=== PATIENT | female | born 1990 | race American Indian/Alaskan Native ===

== ENCOUNTER → 2020-05-19 13:55 | Outpatient (BNVA) | payer OTHER, SELFPAY | PROVIDERS: Visit Provider Nurse Practitioner Family | DX: Z20.828 Contact with and (suspected) exposure to other viral communicable diseases (principal) | CPT/HCPCS: 87635 ==

== ENCOUNTER → 2020-08-09 15:50 | Outpatient (BNVA) | payer OTHER, SELFPAY | PROVIDERS: Visit Provider Nurse Practitioner Women's Health | DX: Z01.411 Encounter for gynecological examination (general) (routine) with abnormal findings | CPT/HCPCS: 88175 ==

== ENCOUNTER 2020-08-13 08:20 | Outpatient (CLI) | payer OTHER, SELFPAY ==
--- NOTE | 2020-08-13 08:45 | US_ITS ---
WS: [id number] ULTRASOUND LEFT BREAST HISTORY: N63.20 - Unspecified lump in the left breast, unspecified quadrant COMPARISON: None available. TECHNIQUE: 2-D and Doppler. Dense fibroglandular tissue in the LEFT breast upper outer quadrant in the area of the reported palpa ble nodule. There is no cyst or solid mass or distortion. US/US breast LT limited* [id number] IMPRESSION: BI-RADS: 1-Negative FOLLOW-UP: Age 42
== END 2020-08-13 08:21 | disposition home or self-care (01) ==
LOC: RAD 08:24
PROVIDERS: PCP Nurse Practitioner Family; Visit Provider Nurse Practitioner Women's Health
DX: N63.21 Unspecified lump in the left breast, upper outer quadrant (principal)
CPT/HCPCS: 76642; 76830

== ENCOUNTER → 2020-09-11 15:35 | Outpatient (BNVA) | payer OTHER, SELFPAY | PROVIDERS: PCP Nurse Practitioner Family; Visit Provider Obstetrics & Gynecology | DX: Z20.822 Contact with and (suspected) exposure to COVID-19 (principal) | CPT/HCPCS: 87635 ==

== ENCOUNTER 2020-09-17 09:02 | Day surgery (SDC) | payer OTHER, SELFPAY ==
[2020-09-13 10:07] VITALS: BMI 23.3
[2020-09-17] VITALS (7 sets, daily range): BP systolic 83–122; BP diastolic 39–78; PULSE 73–92; RESP 16–18; TEMP 36.4; O2SAT 98–100
[2020-09-17] MEDS: sodium chloride 0.9% 1,000 ML 30 ML IV (09:30)
[2020-09-17] MEDS: gabapentin 300 mg Capsule PO (09:34)
[2020-09-17] MEDS: ketorolac 30 mg/mL INJ IVP (09:36)
[2020-09-17 09:46] LABS: OR HCG Qualitative Urine Negative (Negative)
--- NOTE | 2020-09-17 10:52 | ANES.PREANE2 ---
Pre-Anesthetic Assessment Pre-Anesthetic Assessment: Height/Weight: Height 1.65 m Weight 63.503 kg Temp Pulse Resp BP Pulse Ox 97.5 F L 78 16 119/78 99 09/17/20 09:37 09/17/20 09:37 09/17/20 09:37 09/17/20 09:37 09/17/20 09:37 Preop Diagnosis: endometrial polyp Proposed Procedure: Operation Date: 09/17/20 10:40 Proposed Procedures p Hysteroscopy/polypectomy w/ Myosure 38087 N84.0(Not Applicable) - Josleuis Moreno MD Was Beta Rosamaria taken within 24 hours: N/A Was Clonidine taken within 24 hours: N/A Last intake: Intake Last Liquid Date 09/16/20 Last Liquid Time 17:00 Last Solid Date 09/16/20 Last Solid Time 17:00 Social: Social History: No alcohol and No tobacco Exam: Pre-Anes Outpt Exam: alert, oriented x 3, clear to auscultation bilaterally and regular rate & rhythm Airway: Submandibular: WNL Cervical ROM: WNL MP: 2 Dentition: Full Metabolic: Metabolic: Thyroid Anesthetic Plan: ASA status: 2 Anesthesia: General Risk of > 500 ml blood loss (7ml/kg in children): No Meds/Allergies Current Medications: Current Medications Generic Name Dose Route Start Last Admin Trade Name Freq PRN Reason Stop Dose Admin Sodium Chloride 1,000 mls @ 30 ml s/hr 09/17/20 09:15 09/17/20 09:30 Sodium Chloride 0.9% IV 09/18/20 09:14 30 mls/hr .Q24H HASEEB Administration PFSH Anesthesia PFSH: Medical History (Updated 09/13/20 @ 10:07 by Viji Atkins) Graves disease Hyperthyroidism managed by [facility]Endo at [facility]; off meds since 02/2019 No pertinent past medical history neghx: htn,dm,dvt/pe PCP: Joellen Damian [employer] Surgical History S/P tonsillectomy and adenoidectomy age 10 S/P wisdom tooth extraction age 20 Family History Mother Hypertension Grandfather Colon cancer Paternal-- dx age 70 Grandmother Heart disease paternal Father Hypercholesteremia Brother Hypertension Denies family history of Ovarian cancer Diabetes Breast cancer Uterine cancer Stroke Social History (Updated 09/09/20 @ 18:52 by Joseluis Moreno MD) Smoking and tobacco status: never smoked Alcohol intake: current Alcohol intake frequency: holidays/special occasions only Substance/Drug Use: never Female Reproductive History: Date of last menstrual period: 08/13/20 Data Anesthesia Other Labs: Laboratory Results - last 48 hr 09/17/20 09:41 Urine HCG, Qual Negative Cardiac Studies: No Data to Display
--- NOTE | 2020-09-17 11:42 | W.PM.OPSUD ---
Surgery/Procedure H&P Update DATE OF PROCEDURE: September 17, 2020 DATE H&P PERFORMED: 09/05/20 H&P UPDATE INFORMATION: I have reviewed H&P completed within last 30 days, I have examined patient prior to procedure, No changes to prior documentation and [place] [facility] [place] date indicated PREOP DIAGNOSIS: endometrial polyp PLANNED PROCEDURE: Operation Date: 09/17/20 10:40 Proposed Procedures p Hysteroscopy/polypectomy w/ Myosure 55827 N84.0(Not Applicable) - Joseluis Moreno MD
--- NOTE | 2020-09-17 12:09 | SUR.OPER ---
1206 IUD removed intact by DR Moreno and disposed of in biohazard
--- NOTE | 2020-09-17 12:44 | P.OP_ITS ---
Operative Report Date of procedure: September 17, 2020 Pre-op Diagnosis: endometrial polyp Post-op Diagnosis: Intracavitary uterine fibroid Procedure Done: Hysteroscopy with myomectomy with MyoSure, Paracervical block. Specimens removed/disposition: Uterine fibroid Surgeon: Joseluis Moreno Top Dyeing Machine Tender: None Anesthesia: MAC and Other (Paracervical block with 2% lidocaine with epinephrine) Estimated blood loss (mL): 5 IV fluids (mL): 1,000 Complications: None Findings: 2 cm fibroid in the lower uterine segment, essentially all within the cavity of the uterus. Either bicornuate or septate uterus noted. Brief History: Patient is a 29-year-old female, nulligravida, with a Mirena IUD present for control. She had presented to the office on 08/09/2020 for a well woman exam with a Mirena IUD present. At her visit, the strings were not able to be identified and an ultrasound was ordered. Ultrasound revealed a 1-1/2 x 1 cm mass within the lower uterine segment of the uterus, displacing the IUD to the side. Based upon its appearance, it was thought to most likely represent a endometrial polyp. Recommendations were for removal of the mass. As a result she is now presenting for that. Procedure: The patient was taken to the operating room where IV sedation was started. She was prepped and draped in the usual sterile fashion in the dorsal supine position with legs in Quan style stirrups. Sequential compression boots had been placed prior to starting the case. Patient had voided just before coming to the operating room. Exam under anesthesia was performed and the patient was noted to have no palpable masses. She had a second-degree uterine prolapse noted. A weighted speculum was placed in the vagina and the cervix was grasped with a single-tooth tenaculum. A paracervical block was performed with a total of 12 mL of 2% lidocaine with epinephrine used. The string of the IUD was able to be identified and was grasped with a clamp and removed. The cervix was serially dilated. During this process it was difficul to pass the dilator through the cervix, with various reorientation of the dilator needed to insert it completely. When she was dilated enough, a hysteroscope was inserted and she was noted to have a fibroid arising from the anterior uterine wall just at the junction of the cervix to the lower uterine segment of the uterus. It was approximately 2 cm in diameter. I was unable to get the hysteroscope passed the fibroid. Using the MyoSure device, the fibroid was completely excised. It was found to be completely within the endometrial cavity. Once it was removed we were able t o visualize the rest of the endometrial cavity. 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 Both tubal ostia were identified. The tenaculum was removed and there was minimal bleeding from the tenaculum site. Patient tolerated the procedure well. Sponge and needle counts were correct. DRAINS: None POSTOPERATIVE STATUS: The patient was transferred to the recovery room in satisfactory condition DISPOSITION: Discharge to home when criteria was met. FOLLOWUP APPOINTMENT: Followup appointment had been scheduled on 09/30/2020 in my office. MEDICATIONS: Tramadol 50 mg, 1 to 2 tablets every 6 hours as needed, #10, 0 refills She may resume her usual home medications.
--- NOTE | 2020-09-17 14:11 | ANE.PACU2 ---
Inpatient post-anesthesia follow up: Airway intact: Yes Vital signs: Temperature 97.6 F Pulse Rate 92 Respiratory Rate 18 Blood Pressure 122/77 Pulse Oximetry 98 Oxygen Delivery Me thod Room Air Oxygen Flow Rate 6 Fraction of Inspir ed Oxygen Hydration adequate: Yes Nausea and vomiting: No Pain level: 2 Mental status: Baseline
== END 2020-09-17 13:30 | disposition home or self-care (01) ==
PROVIDERS: PCP Nurse Practitioner Family; Visit Provider Obstetrics & Gynecology
PROC: 0UDB8ZZ Extraction of Endometrium, Via Natural or Artificial Opening Endoscopic (ICD-10-PCS; CPT 58558; principal; 2020-09-17 10:30)
DX: N84.0 Polyp of corpus uteri (principal); E03.9 Hypothyroidism, unspecified
CPT/HCPCS: 58561; 81025; 84703; 88305; J0131; J1100; J1885; J2250; J2405; J2704; J3010; J7030

== ENCOUNTER → 2020-12-09 15:10 | Outpatient (BNVA) | payer OTHER, SELFPAY | PROVIDERS: PCP Nurse Practitioner Family; Visit Provider Nurse Practitioner Women's Health | DX: N83.201 Unspecified ovarian cyst, right side (principal) | CPT/HCPCS: 76830 ==

== ENCOUNTER 2021-01-01 06:52 | Outpatient (CLI) | payer OTHER, SELFPAY ==
--- NOTE | 2021-01-01 07:05 | MRR_ITS ---
PROCEDURE INFORMATION: Exam: MR Pelvis Without Contrast; Uterus and Cervix Exam date and time: 01/01/2021 7:05 AM Age: 30 years old Clinical indication: Condition or disease; Other: Congenital malformation of uterus and cervix; Prior surgery; Surgery date: 6+ months; Surgery type: Fibroid removed 09/22; Additional info: Q51.9 - congenital malformation of uterus and cervix, uns. . . TECHNIQUE: Imaging protocol: Magnetic resonance images of the pelvis without contrast. Exam focused on the uterus and cervix. COMPARISON: US transvaginal [id number] 12/09/2020 3:14 PM FINDINGS: Intraperitoneal space: There is a trace amount physiologic free intraperitoneal fluid in the cul-de-sac. Reproductive: The examination of the uterus shows a smooth indentation of the fundal endometrial canal. There is a normal fundal contour and no division of the uterine horns. This appearance is consistent with an arcuate uterus. No uterine masses are seen. The endometrium is uniform. There is a small amount of fluid in the endocervical canal. Ovaries are unremarkable. Bones/joints: Unremarkable. No fracture. Soft tissues: Unremarkable. MR/MR pelvis wo con* [id number] IMPRESSION: 1. Arcuate uterus. 2. No masses are seen in the uterus or cervix. The endometrium is unremarkable.
== END 2021-01-01 06:53 | disposition home or self-care (01) ==
LOC: RADSHAW 06:55
PROVIDERS: PCP Nurse Practitioner Family; Visit Provider Nurse Practitioner Women's Health
DX: Q51.9 Congenital malformation of uterus and cervix, unspecified (principal); Q51.810 Arcuate uterus
CPT/HCPCS: 72195

== ENCOUNTER 2021-03-13 07:11 | Outpatient (CLI) | payer OTHER, SELFPAY ==
--- NOTE | 2021-03-13 07:15 | US_ITS ---
WS: [id number] ULTRASOUND PELVIS TECHNIQUE: Transabdominal. CLINICAL INFORMATION: N84.1 - Polyp of cervix uteri LMP: : No. COMPARISON: Ultrasound December 09, 2020. MRI January 01, 2021 FINDINGS: Uterus Orientation: Anteverted. Size: 8.7 cm x 5.7 cm x cm Masses: None. Cervix: Small amount of residual fluid/soft tissue thickening in the lower uterine segment/cervix Endometrium: Normal. Endometrium thickness: 0.4 cm. Adnexa: Small bilateral ovarian cysts. Multifollicular ovaries bilaterally. Right ovary size: 3.7 cm x 1.7 cm x 2.2 cm. Right ovary volume: 7.4 ccm3 Left ovary size: 2.4 cm x 1.4 cm x 1.7 cm. Left ovary volume: 3.0 ccm3 Free fluid: None. Other findings: None. US/US pelvic complete* [id number] IMPRESSION: 1. Normal endometrium measuring 3.9 mm. 2. Bilateral ovarian cysts measuring 1.7 x 1.3 cm on the right and 0.9 x 0.9 c m in the left. Multilocular ovaries bilaterally with normal vascularity. 3. No free fluid in the cul-de-sac. 4. Previous removal of cervical polyp with a small amount of residual fluid/so ft tissue thickening similar to the prior examination in the lower uterine segm ent/cervix
== END 2021-03-13 07:12 | disposition home or self-care (01) ==
LOC: US 07:13
PROVIDERS: PCP Nurse Practitioner Family; Visit Provider Obstetrics & Gynecology
DX: N84.1 Polyp of cervix uteri (principal); N83.202 Unspecified ovarian cyst, left side; N83.201 Unspecified ovarian cyst, right side
CPT/HCPCS: 76856

== ENCOUNTER → 2021-04-08 09:20 | Outpatient (BNVA) | payer OTHER, SELFPAY | PROVIDERS: PCP Nurse Practitioner Family; Visit Provider Obstetrics & Gynecology | DX: N94.89 Other specified conditions associated with female genital organs and menstrual cycle (principal) | CPT/HCPCS: 81025 ==

== ENCOUNTER → 2022-01-29 16:15 | Outpatient (BNVA) | payer OTHER, SELFPAY | PROVIDERS: PCP Nurse Practitioner Family; Visit Provider Nurse Practitioner Women's Health | DX: R87.810 Cervical high risk human papillomavirus (HPV) DNA test positive (principal); Z01.419 Encounter for gynecological examination (general) (routine) without abnormal findings; Q51.810 Arcuate uterus; E03.9 Hypothyroidism, unspecified | CPT/HCPCS: 87624 ==

== ENCOUNTER → 2022-05-11 08:45 | Outpatient (BNVA) | payer OTHER, SELFPAY | PROVIDERS: PCP Nurse Practitioner Family; Visit Provider Nurse Practitioner Women's Health | DX: E03.9 Hypothyroidism, unspecified (principal); Q51.810 Arcuate uterus | CPT/HCPCS: 84443; 84702 ==

== ENCOUNTER 2022-06-17 15:51 | Outpatient (CLI) | payer OTHER, SELFPAY ==
--- NOTE | 2022-06-17 17:11 | ECG_ITS ---
[facility] Test Date: 2022-06-17 Pat Name: Susie Cole Department: Room: Gender: Female Program Aide: : 1990 Requested By: Jonna Iglesias Order Number: [id number] Sho MD: Linda Melton M.D. Measurements Intervals Amity Rate: 76 P: 54 NJ: 133 QRS: 41 QRSD: 88 T: 29 QT: 386 QTc: 436 Interpretive Statements SINUS RHYTHM WITH SINUS ARRHYTHMIA LOW QRS VOLTAGE IN PRECORDIAL LEADS [QRS DEFLECTION < 1.0 mV IN CHEST LEADS] No previous ECG available for comparison Electronically Signed On 06-17-2022 18:28:23 C[employer]AT by Linda Melton M.D. [id number] f
[2022-06-17 17:29] LABS: Basophils # 0.1 10^3/uL (0.0-0.1); Basophils % 0.9 %; Eosinophils # 0.1 10^3/uL (0.0-0.8); Eosinophils % 1.2 %; Hematocrit 36.6 % (37.0-47.0); Hemoglobin 12.2 g/dL (11.5-15.3); Lymphocytes # 2.2 10^3/uL (0.8-4.8); Lymphocytes % 23.1 %; Mean Corpuscular HGB Conc 33.3 g/dL (30.0-36.0); Mean Corpuscular Hemoglobin 30.3 pg (28.0-34.0); Mean Corpuscular Volume 90.8 fl (81-99); Mean Platelet Volume 10.9 fL (7.4-10.4); Neutrophils # 6.21 10^3/uL (1.8-7.7); Neutrophils % 64.1 %; Nucleated Red Blood Cells % 0 %; Platelet Count 247 10^3/cmm (130-400); Red Blood Count 4.03 10^6/uL (4.1-5.3); Red Cell Distribution Width 14.3 % (12.1-15.1); White Blood Count 9.7 10^3/uL (4.0-10.0)
[2022-06-17 17:43] LABS: Alanine Aminotransferase 14 U/L (0-33); Albumin Level 4.1 g/dL (3.5-5.2); Alkaline Phosphatase 33 U/L (35-105); Anion Gap 13.1 (5-19); Aspartate Amino Transferase 14 U/L (0-32); Blood Urea Nitrogen 9 mg/dL (6-20); Calcium 8.9 mg/dL (8.5-10.5); Carbon Dioxide 25 mmol/L (22-29); Chloride 100 mmol/L (98-107); Globulin 2.9 g/dL (1.3-4.6); Glomerular Filtration Rate 188.7 mL/min (90-130); Glucose 81 mg/dL (65-115); Osmolality Calculated 276 mOsm/kg (285-295); Potassium 4.1 mmol/L (3.5-5.1); Sodium 134 mmol/L (136-145); Total Bilirubin 0.2 mg/dL (0.15-1.2)
== END 2022-06-17 15:52 | disposition home or self-care (01) ==
PROVIDERS: PCP Nurse Practitioner Family; Visit Provider Nurse Practitioner Women's Health
DX: Z34.90 Encounter for supervision of normal pregnancy, unspecified, unspecified trimester (principal); R00.0 Tachycardia, unspecified
CPT/HCPCS: 80053; 85025; 93005

== ENCOUNTER → 2022-06-19 13:28 | Outpatient (BNVA) | payer OTHER, SELFPAY | PROVIDERS: PCP Nurse Practitioner Family; Visit Provider Obstetrics & Gynecology | DX: Z34.90 Encounter for supervision of normal pregnancy, unspecified, unspecified trimester (principal) | CPT/HCPCS: 80307; 84315; 84443; 86592; 86762; 86803; 86850; 86900; 87086; 87340; 87491; 87591; 87661 ==

== ENCOUNTER → 2022-08-25 08:05 | Outpatient (BNVA) | payer OTHER, SELFPAY | PROVIDERS: PCP Nurse Practitioner Family; Visit Provider Obstetrics & Gynecology | DX: Z36.87 Encounter for antenatal screening for uncertain dates (principal) | CPT/HCPCS: 76805 ==

== ENCOUNTER → 2022-09-21 13:20 | Outpatient (BNVA) | payer OTHER, SELFPAY | PROVIDERS: PCP Nurse Practitioner Family; Visit Provider Obstetrics & Gynecology | DX: O09.90 Supervision of high risk pregnancy, unspecified, unspecified trimester (principal); Z3A.24 24 weeks gestation of pregnancy | CPT/HCPCS: 82950; 84315 ==

== ENCOUNTER → 2022-10-14 07:52 | Outpatient (BNVA) | payer OTHER, SELFPAY | PROVIDERS: PCP Nurse Practitioner Family; Visit Provider Obstetrics & Gynecology | DX: Z34.00 Encounter for supervision of normal first pregnancy, unspecified trimester (principal) | CPT/HCPCS: 76816 ==

== ENCOUNTER → 2022-10-19 12:52 | Outpatient (BNVA) | payer OTHER, SELFPAY | PROVIDERS: PCP Nurse Practitioner Family; Visit Provider Obstetrics & Gynecology | DX: O09.90 Supervision of high risk pregnancy, unspecified, unspecified trimester (principal); R82.90 Unspecified abnormal findings in urine; O26.892 Other specified pregnancy related conditions, second trimester; Z67.91 Unspecified blood type, Rh negative; E03.9 Hypothyroidism, unspecified; Q51.810 Arcuate uterus; R00.0 Tachycardia, unspecified; Z3A.00 Weeks of gestation of pregnancy not specified | CPT/HCPCS: 81000; 85025; 87086 ==

== ENCOUNTER → 2022-11-02 10:11 | Outpatient (BNVA) | payer OTHER, SELFPAY | PROVIDERS: PCP Nurse Practitioner Family; Visit Provider Obstetrics & Gynecology | DX: O09.90 Supervision of high risk pregnancy, unspecified, unspecified trimester (principal); Z3A.00 Weeks of gestation of pregnancy not specified | CPT/HCPCS: 80053; 81000; 82570; 84156; 84550; 85025 ==

== ENCOUNTER 2022-11-04 08:22 | Outpatient (CLI) | payer OTHER, SELFPAY ==
[2022-11-04 10:18] LABS: Total Volume, Urine 2500 mL; Urine Total Protein 6.1 mg/dL (0-150); Urine Total Protein 24 Hour 152.5 mg/24hr (0-150)
== END 2022-11-04 08:23 | disposition home or self-care (01) ==
LOC: LAB 08:26
PROVIDERS: PCP Nurse Practitioner Family; Visit Provider Obstetrics & Gynecology
DX: O09.90 Supervision of high risk pregnancy, unspecified, unspecified trimester (principal); Z3A.00 Weeks of gestation of pregnancy not specified
CPT/HCPCS: 84156

== ENCOUNTER → 2022-12-10 13:25 | Outpatient (BNVA) | payer OTHER, SELFPAY | PROVIDERS: PCP Nurse Practitioner Family; Visit Provider Obstetrics & Gynecology | DX: O09.90 Supervision of high risk pregnancy, unspecified, unspecified trimester (principal); Z3A.36 36 weeks gestation of pregnancy | CPT/HCPCS: 76816 ==

== ENCOUNTER → 2022-12-15 09:34 | Outpatient (BNVA) | payer OTHER, SELFPAY | PROVIDERS: PCP Nurse Practitioner Family; Visit Provider Obstetrics & Gynecology | DX: O09.90 Supervision of high risk pregnancy, unspecified, unspecified trimester (principal); Z3A.36 36 weeks gestation of pregnancy | CPT/HCPCS: 84315; 87081 ==

== ENCOUNTER → 2022-12-29 08:22 | Outpatient (BNVA) | payer OTHER, SELFPAY | PROVIDERS: PCP Nurse Practitioner Family; Visit Provider Obstetrics & Gynecology | DX: O09.90 Supervision of high risk pregnancy, unspecified, unspecified trimester (principal); Z3A.38 38 weeks gestation of pregnancy | CPT/HCPCS: 81000 ==

== ENCOUNTER 2023-01-03 05:58 | Inpatient (IN) | payer OTHER, SELFPAY ==
[2023-01-03] VITALS (108 sets, daily range): BP systolic 88–144; BP diastolic 53–101; PULSE 64–137; RESP 15; TEMP 36.2–37.2; O2SAT 97–98; BMI 35.6
[2023-01-03 04:57] LABS: Nitrazine Paper, PH Inconclusive
[2023-01-03 05:02] LABS: Actim Prom Positive
[2023-01-03 05:11] LABS: Glucose Urine UA Norm (Normal); Ketones Urine Negative (Negative); Protein Urine Neg (Negative); Specific Gravity, Urine 1.005 (1.005-1.030); Urine Appearance Clear (CLEAR); Urine Color Colorless (Yellow); pH Urine 7 (5-7)
[2023-01-03 05:12] LABS: Bilirubin Urine Neg (Negative); Blood Urine 3+ (Negative); Leukocyte Esterase Urine Trace (Negative); Nitrate Urine Negative (Negative); Urobilinogen Urine Norm (Negative)
[2023-01-03 05:13] LABS: Bacteria Urine 1+ /hpf; RBC Urine 0-4 /hpf (0-2); WBC Urine 0-4 /hpf (0-5)
[2023-01-03 05:56] LABS: Basophils # 0.1 10^3/uL (0.0-0.1); Basophils % 0.7 %; Eosinophils # 0.1 10^3/uL (0.0-0.8); Eosinophils % 0.9 %; Hematocrit 42.6 % (37.0-47.0); Hemoglobin 14.3 g/dL (11.5-15.3); Lymphocytes % 15.6 %; Mean Corpuscular HGB Conc 33.6 g/dL (30.0-36.0); Mean Corpuscular Hemoglobin 30.6 pg (28.0-34.0); Mean Corpuscular Volume 91.2 fl (81-99); Mean Platelet Volume 12.5 fL (7.4-10.4); Monocytes # 1.2 10^3/uL (0.2-0.9); Monocytes % 9.3 %; Neutrophils # 9.15 10^3/uL (1.8-7.7); Neutrophils % 71.2 %; Nucleated Red Blood Cells % 0 %; Platelet Count 155 10^3/cmm (130-400); Red Blood Count 4.67 10^6/uL (4.1-5.3); White Blood Count 12.9 10^3/uL (4.0-10.0)
[2023-01-03] MEDS: dextrose 5%-lactated ringers 1,000 ML 125 ML IV ×3 (07:33→20:26)
[2023-01-03] MEDS: lactated ringers 1,000 ML 999 ML IV (09:43)
--- NOTE | 2023-01-03 11:10 | ANES.PREANE2 ---
Pre-Anesthetic Assessment Height/Weight: Height 1.65 m Weight 97.069 kg Temp Pulse Resp BP Pulse Ox O2 Del Method 97.2 F L 100 15 110/64 98 Room Air 01/03/23 07:36 01/03/23 11:06 01/03/23 04:32 01/03/23 11:06 01/03/23 11:03 01/03/23 05:50 epidural Familial anesthetic complications: none Was Beta Rosamaria taken within 24 hours: N/A Was Clonidine taken within 24 hours: N/A Social No alcohol and No tobacco Exam alert, oriented x 3, clear to auscultation bilaterally and regular rate & rhythm Airway Mallampati: Class I Dentition: full Anesthetic Plan ASA status: 2 Anesthesia: Regional (specify below) Risk of > 500 ml blood loss (7ml/kg in children): Yes, adequate IV access and fluids planned Medications/Allergies Home Medications Medication Instructions Recorded Confirmed Last Taken Type loratadine 10 mg tablet (Claritin) 10 mg PO DAILY 05/25/22 01/03/23 01/02/23 History prenat.vits,catracho,kih-qddr-uflbu 1 tab PO DAILY 05/25/22 01/03/23 01/02/23 History levothyroxine 50 mcg capsule 88 mcg PO DAILY 07/28/22 01/03/23 01/02/23 History breast pump #1 ea 11/02/22 12/29/22 Unknown Rx Allergies Allergy/AdvReac Type Severity Reaction Status Date / Time No Known Allergies Allergy Verified 01/03/23 04:49 Current Medications Generic Name Dose Route Start Last Admin Trade Name Freq PRN Reason Stop Dose Admin Dextrose/Lactated Ringer's 1,000 mls @ 125 mls/hr 01/03/23 06:00 01/03/23 09:43 Dextrose 5%-Lactated Ringers IV 0 mls/hr .Q8H HASEEB Infusion Oxytocin 30 unit/ Sodium 503 mls @ 1 mls/hr 01/03/23 07:00 01/03/23 08:45 Chloride IV 4 ml/hr .Q24H HASEEB 4 mls/hr Titration Protocol FOR[facility], [facility] Anesthesia Medical History History of hyperthyroidism Diagnosed with Graves' disease and hyperthyroidism in 2018 and was on methimazole managed by infirmary attendant Dr. Llamas in [facility]. -Reports being on medication until 2019 and levels were normal and she was not on any medication on 09/22/2019 when she was diagnosed with hypothyroidism and is now on levothyroxine Hypothyroidism Diagnosed in 2019 after hyperthyroidism with Graves'. This is being managed by endocrinology in [facility]. She also reports having a goiter without any nodules No pertinent past medical history Denies diabetes, asthma, hypertension, seizures, DVT/PE PCP: RENALDO Payton Rh D negative blood type Surgical History S/P tonsillectomy and adenoidectomy age 10 S/P wisdom tooth extraction age 20 Status post hysteroscopy 09/17/2020---hysteroscopy with MyoSure for removal of fibroid and [place] [facility] [place]-> at time of hysteroscopy 2 cm fibroid noted arising from the anterior uterine wall at the junction of the lower uterine segment and cervix which was removed with MyoSure. ------> pathology showed benign endometrial polyp with findings suggestive of a fragmented leiomyoma. No atypia or hyperplasia identified. Family History Mother Hypertension Heart disease Thyroid condition Grandfather Colon cancer Paternal-- dx age 70 Grandmother Heart disease paternal Father Hypercholesteremia Brother Hypertension Family/Other Thyroid condition maternal aunt Social History Smoking and tobacco status: never smoked Substance/Drug Use: never Female Reproductive History : 1 Data Anesthesia 01/03/23 05:40 Short CBC 01/03/23 Range/Units 05:40 WBC 12.9 H (4.0-10.0) 10^3/uL Hgb 14.3 (11.5-15.3) g/dL Hct 42.6 (37.0-47.0) % MCV 91.2 (81-99) fl Plt Count 155 (130-400) 10^3/cmm Neut % (Auto) 71.2 % Neut # (Auto) 9.15 H (1.8-7.7) 10^3/uL Urine 01/03/23 Range/Units 04:27 Urine Color Colorless (Yellow) Urine Appearance Clear (CLEAR) Urine pH 7 (5-7) Ur Specific [place] 1.005 (1.005-1.030) Urine Protein Neg (Negative) Urine Glucose (UA) Norm (Normal) Urine Ketones Negative (Negative) Urine Nitrate Negative (Negative) Urine Bilirubin Neg (Negative) Ur Leukocyte Esterase Trace H (Negative) Urine RBC 0-4 H (0-2) /hpf Urine WBC 0-4 H (0-5) /hpf Blood Bank 01/03/23 05:40 Blood Type A Negative Rho(D) Type Negative Antibody Screen Negative Cardiac Studies: No Data to Display
--- NOTE | 2023-01-03 11:11 | ANES.PROC ---
Anesthesia Procedures Procedure/Date: 01/03/23 Epidural: Time Out Performed: Yes Consents Signed: Procedure Consent Consent: requested by attending/covering physician, from other, risks and benefits reviewed, patient agrees to proceed and emergency procedure Lumbar Level: L3-L4 Epidural position: sitting Epidural procedure: sterile prep of area, 1% lidocaine to numb the area, 18 g needle, negative for paresthesia passed, neg for paresthesia, test dose given, 1.5% xylocaine 1:200k epi (5 ml (divided dose)), 0.2% Ropivacaine bolus ml (5), placed PCEA, no systemic response, sterile dressing applied, L.U.D. no apparent complications and 0.2% Ropiavacaine @ mls/hr (10) Additional Comments: JOSE at 6 cm, threaded to 12 cm. Pain decreased from 9/10 to 7/10 - encouraged further bolus use.
--- NOTE | 2023-01-03 16:29 | PM.OPHPUD ---
Labor & Delivery H&P Update Date of Procedure: January 03, 2023 Date H&P Performed: 12/29/22 H&P update information: I have reviewed H&P completed within last 30 days, I have examined patient prior to procedure and Changes to prior documentation as noted here Changes to previous documentation: The patient presents with PROM at 0300 hours Admission Diagnosis: IUP@ 39w1d, rh negative, hypothyroidism,SVT, arcuate uterus. PROM Related Problem List Diagnoses (1) SVT (supraventricular tachycardia): (2) Supervision of high-risk : (3) Rh D negative blood type: (4) Arcuate uterus: (5) Hypothyroidism:
[2023-01-03] MEDS: oxytocin 30 UNIT/500 ML BAG 600 UNIT IV (22:11)
--- NOTE | 2023-01-03 22:27 | PM.DELIVERY ---
Delivery Note: Date of delivery: January 03, 2023 Pre-delivery diagnoses: iup@ 39 weeks, rh negative, hypothyroidism Post-delivery diagnoses: same, macrosomia Procedure: Delivering Physician: Monika Estimated blood loss (mL): 200 Findings: term male in the ANNMARIE presentation Pre-Delivery Course: The patient was admitted for PROM. Low dose pitocin was started and the patient began to have regular contractions. She received an epidural for pain management. She began to have cervical change and the pitocin was discontinued. She had complete cervical dilation. A forebag was ruptured. She was allowed to labor down. She began to push at +2 station Delivery: The patient had complete cervical dilation and began to push. The head delivered in the ANNMARIE position over an intact perineum under epidural anesthesia. The baby appeared to be large and there was a turtle sign with delivery of the head. Ector maneuver was employed. The shoulders and body delivered atraumatically. The baby was placed onto the mother's abdomen. The nose and mouth were bulb suctioned. The cord was clamped and cut. Cord blood was obtained. The placenta delivered spontaneously. It was inspected and found to be intact. Inspection of the perineum revealed a small left vaginal tear that extended about a centimeter into the left sulcus. This was repaired using interrupted sutures and there was excellent hemostasis post repair. Estimated blood loss 200 mL. Apgars on baby were 8 at 1 minute and 9 at 5 minutes. Weight of baby is 10 pounds 8 ounces. Mother and baby were stable post delivery. History History History 1 Term Miscarriages/Ectopic Living Children Coding Level of Care Code Acute Code for Chg Fwd Diagnoses
[2023-01-04] VITALS (10 sets, daily range): BP systolic 107–139; BP diastolic 66–81; PULSE 72–106; RESP 15–17; TEMP 36.4–36.9; O2SAT 96–97
[2023-01-04] MEDS: benzocaine-menthol 78 gm Canister 1 SPRAY TOPICAL (00:09)
[2023-01-04] MEDS: lanolin oint 7 gm 1 APPLIC TOPICAL (00:09)
[2023-01-04] MEDS: acetaminophen 325 mg Tablet 650 MG PO (00:12)
--- NOTE | 2023-01-04 08:25 | ANE.PACU2 ---
Inpatient post-anesthesia follow up: Airway intact: Yes Vital signs: Temperature 98.1 F Pulse Rate 90 Respiratory Rate 15 Blood Pressure 131/81 Pulse Oximetry 97 Oxygen Delivery Me thod Room Air Oxygen Flow Rate Fraction of Inspir ed Oxygen Hydration adequate: Yes Nausea and vomiting: No Pain level: 2 Mental status: Baseline
[2023-01-04] MEDS: ibuprofen 800 mg tablet PO ×2 (08:57→21:49)
[2023-01-04] MEDS: prenatal vitamin Capsule 1 CAP PO (08:58)
[2023-01-04] MEDS: docusate sodium 100 mg Capsule PO (08:58)
[2023-01-04] MEDS: levothyroxine 88 mcg Tablet PO (09:21)
[2023-01-04 11:30] LABS: Hematocrit 33.7 % (37.0-47.0); Hemoglobin 11.1 g/dL (11.5-15.3); Mean Corpuscular HGB Conc 32.9 g/dL (30.0-36.0); Mean Corpuscular Hemoglobin 30.6 pg (28.0-34.0); Mean Corpuscular Volume 92.8 fl (81-99); Mean Platelet Volume 12.5 fL (7.4-10.4); Platelet Count 148 10^3/cmm (130-400); Red Blood Count 3.63 10^6/uL (4.1-5.3); Red Cell Distribution Width 13.1 % (12.1-15.1); White Blood Count 20.1 10^3/uL (4.0-10.0)
--- NOTE | 2023-01-04 16:01 | PM.PN ---
Subjective Subjective: The patient reports that she is doing well today. No concerns. Vitals/I&O/Wt Last Vital Signs Temp 97.9 F 01/04/23 09:45 Pulse 73 01/04/23 09:45 Resp 16 01/04/23 09:45 BP 120/72 01/04/23 09:45 Pulse Ox 97 01/04/23 00:28 O2 Del Method Room Air 01/04/23 06:10 01/04/23 01/04/23 01/04/23 06:59 14:59 22:59 Intake Total 666.667 / 4065.616 Output Total 300 / 900 Balance 366.667 / 3165.616 Weight last 48 hrs Weight 214 lb Weight 214 lb Physical Exam Narrative: The patient is doing well. Able to tolerate a normal diet, pain is well controlled. is going well. Const: COMMON NORMALS: no acute distress, patient oriented x3, no limitations, alert and well nourished GENERAL APPEARANCE: cooperative, comfortable, well kempt and well developed ORIENTATION/CONSCIOUSNESS: Yes awake, Yes oriented to person, Yes oriented to place and Yes oriented to time GI: COMMON NORMALS: Soft to palpation and non-tender PALPATION: Yes Soft to palpation Extremity: COMMON NORMALS: no calf tenderness Neuro: COMMON NORMALS: patient oriented x3 SENSORIUM/ORIENTATION: Yes alert, Yes oriented to person, Yes oriented to place and Yes oriented to time Psych: COMMON NORMALS: mental status grossly normal, Normal thought process present, cooperative, normal affect and speech normal APPEARANCE: Yes well kempt SPEECH: Yes normal speech THOUGHT PROCESS: Normal thought process present Urinary Catheter Management: Orellana: Cath Placed During This Visit: yes, but has since been removed by the nurse Reason for Continuing Indwelling Catheter: Decision to DC Catheter Urinary Catheter Date of Insertion: 01/03/23 Urinary Catheter Time of Insertion: 11:45 Date Urinary Catheter Removed: 01/03/23 Time Urinary Catheter Discontinued: 21:52 Data 01/04/23 11:20 Attestations Medical Necessity Statement*: The patient will be here for two midnights, since she delivered so late last night. Coding Level of Care Code Acute Code for Chg Fwd Diagnoses
--- NOTE | 2023-01-05 14:35 | PM.OBGYDC ---
Discharge Providers SALES AND TRAINING SPECIALIST Date of Admission: 01/03/23 05:58 Date of Discharge: 01/05/23 Attending Provider at Admission: Roberta Frank MD Attending Provider at Discharge: Simon Menon MD Primary SALES AND TRAINING SPECIALIST: You Swan MD Primary Care Provider: RENALDO Payton Diagnoses at Discharge Discharge Diagnosis (1) SVT (supraventricular tachycardia): Status: Acute (2) Supervision of high-risk : Status: Acute (3) Rh D negative blood type: Status: Acute (4) Arcuate uterus: Status: Chronic (5) Hypothyroidism: Status: Acute Qualifiers: Hypothyroidism type: acquired Qualified Code(s): E03.9 - Hypothyroidism, unspecified Permanent problem details: Diagnosed in 2019 after hyperthyroidism with Graves'. This is being managed by endocrinology in [facility]. She also reports having a goiter without any nodules Reason for Visit Reason for Visit: Possible ROM Hospital Course Hospital Course without any complications Information Peripartum Data: Infant Delivery Method: Vaginal Physical Exam Const: COMMON NORMALS: no acute distress, patient oriented x3 and alert HENMT: COMMON NORMALS: normocephalic and hearing grossly normal bilaterally HEAD & SCALP: normocephalic Chest: COMMONS NORMALS: normal inspection of the chest Resp: COMMON NORMALS: normal respiratory effort and clear to auscultation bilaterally AUSCULTATION: clear to auscultation bilaterally Cardio: COMMON NORMALS: regular rate and regular rhythm RATE: regular rate RHYTHM: regular rhythm GI: COMMON NORMALS: Normal to inspection, nondistended, normoactive bowel sounds present, Soft to palpation and non-tender PALPATION: Yes Soft to palpation Back/Pelvis: COMMON NORMALS: no thoracic nor lumbar tenderness Extremity: COMMON NORMALS: normal to inspection Neuro: COMMON NORMALS: patient oriented x3 SENSORIUM/ORIENTATION: Yes alert Urinary Catheter Management: Orellana: Cath Placed During This Visit: yes, but has since been removed by the nurse Reason for Continuing Indwelling Catheter: Decision to DC Catheter Urinary Catheter Date of Insertion: 01/03/23 Urinary Catheter Time of Insertion: 11:45 Date Urinary Catheter Removed: 01/03/23 Time Urinary Catheter Discontinued: 21:52 History History History 1 Term Miscarriages/Ectopic Living Children Discharge Data Studies Completed and Pending Laboratory Results WBC 20.1 10^3/uL (4.0-10.0) H 01/04/23 11:20 RBC 3.63 10^6/uL (4.1-5.3) L 01/04/23 11:20 Hgb 11.1 g/dL (11.5-15.3) L 01/04/23 11:20 Hct 33.7 % (37.0-47.0) L 01/04/23 11:20 MCV 92.8 fl (81-99) 01/04/23 11:20 MCH 30.6 pg (28.0-34.0) 01/04/23 11:20 MCHC 32.9 g/dL (30.0-36.0) 01/04/23 11:20 RDW 13.1 % (12.1-15.1) 01/04/23 11:20 Plt Count 148 10^3/cmm (130-400) 01/04/23 11:20 MPV 12.5 fL (7.4-10.4) H 01/04/23 11:20 Neut % (Auto) 71.2 % 01/03/23 05:40 Lymph % (Auto) 15.6 % 01/03/23 05:40 Runnels % (Auto) 9.3 % 01/03/23 05:40 Eos % (Auto) 0.9 % 01/03/23 05:40 Baso % (Auto) 0.7 % 01/03/23 05:40 Neut # (Auto) 9.15 10^3/uL (1.8-7.7) H 01/03/23 05:40 Lymph # (Auto) 2.0 10^3/uL (0.8-4.8) 01/03/23 05:40 Runnels # (Auto) 1.2 10^3/uL (0.2-0.9) H 01/03/23 05:40 Eos # (Auto) 0.1 10^3/uL (0.0-0.8) 01/03/23 05:40 Baso # (Auto) 0.1 10^3/uL (0.0-0.1) 01/03/23 05:40 Nucleated RBC % (auto) 0 % 01/03/23 05:40 Nucleated RBCs # 0.0 /100WBC 01/03/23 05:40 Insulin-like GF I Positive 01/03/23 04:27 Urine Color Colorless (Yellow) 01/03/23 04:27 Urine Appearance Clear (CLEAR) 01/03/23 04:27 Urine pH 7 (5-7) 01/03/23 04:27 Ur Specific [place] 1.005 (1.005-1.030) 01/03/23 04:27 Urine Protein Neg (Negative) 01/03/23 04:27 Urine Glucose (UA) Norm (Normal) 01/03/23 04:27 Urine Ketones Negative (Negative) 01/03/23 04:27 Urine Blood 3+ (Negative) H 01/03/23 04:27 Urine Nitrate Negative (Negative) 01/03/23 04:27 Urine Bilirubin Neg (Negative) 01/03/23 04:27 Urine Urobilinogen Norm mg/dL (Negative) 01/03/23 04:27 Ur Leukocyte Esterase Trace (Negative) H 01/03/23 04:27 Urine RBC 0-4 /hpf (0-2) H 01/03/23 04:27 Urine WBC 0-4 /hpf (0-5) H 01/03/23 04:27 Ur Squamous Epith Cells 5-10 /hpf (0-5) H 01/03/23 04:27 Amorphous Sediment Not Reportable 01/03/23 04:27 Urine Bacteria 1+ /hpf (NONE) H 01/03/23 04:27 Blood Type A Negative 01/03/23 05:40 Rho(D) Type Negative 01/03/23 05:40 Antibody Screen Negative 01/03/23 05:40 Screen 0 (Negative) 01/04/23 10:33 Procedures Performed vaginal delivery Vitals Last Vital Signs Temp 98.3 F 01/04/23 22:41 Pulse 80 01/04/23 22:41 Resp 16 01/04/23 22:41 BP 123/75 01/04/23 22:41 Pulse Ox 96 01/04/23 16:19 O2 Del Method Room Air 01/04/23 16:19 Discharge Plan Discharge Patient Disposition: Home Condition: Stable Prescriptions: Continued levothyroxine 50 mcg capsule 88 mcg PO DAILY (DME) breast pump Device See Rx Instructions .Route Qty: 1 0RF Rx Instructions: As directed loratadine [Claritin] 10 mg tablet 10 mg PO DAILY prenat.vits,catracho,wge-drey-ikyuh Tablet 1 tab PO DAILY Discharge Orders: Discharge Order (Routine); Ordered 01/04/23 Ordered By: Roberta Frank Referrals: You Swan MD [Physician] - 02/15/23 2:15 pm Discharge Diet: Usual diet Discharge Activity: Resume usual activity Patient Instructions: Depression (DC), Preeclampsia and Eclampsia After Delivery (GEN), Hemorrhage (DC), OB Discharge Report, OB Food/Drug Interaction Guide, Opioid Safety, OB Home Care, OB Vaginal Deliveries - [facility], Abnormal Bleeding Discharge Attestations SALES AND TRAINING SPECIALIST Time Spent in Discharge Care*: less than 30 min Coding Level of Care Code Acute Code for Chg Fwd Diagnoses SVT (supraventricular tachycardia) I47.1 Supervision of high-risk O09.90 Rh D negative blood type Z67.91 Arcuate uterus Q51.810 Hypothyroidism E03.9 Hypothyroidism type: acquired Time Spent (min) 10
[2023-01-05] MEDS: ibuprofen 800 mg tablet PO (15:10)
[2023-01-05] MEDS: docusate sodium 100 mg Capsule PO (15:11)
[2023-01-05] MEDS: prenatal vitamin Capsule 1 CAP PO (15:11)
[2023-01-05 17:00] VITALS: BP 120/72; PULSE 81; RESP 15; TEMP 36.8
== END 2023-01-05 17:00 | disposition home or self-care (01) | DRG 805 ==
LOC: OPOB 05:59 → OBGYN 05:59
PROVIDERS: Admitting Provider Obstetrics & Gynecology; PCP Nurse Practitioner Family; Visit Provider Obstetrics & Gynecology
DX: O42.92 Full-term premature rupture of membranes, unspecified as to length of time between rupture and onset of labor (principal); O99.42 Diseases of the circulatory system complicating childbirth; Z37.0 Single live birth; I47.1 Supraventricular tachycardia; O71.4 Obstetric high vaginal laceration alone; Z3A.39 39 weeks gestation of pregnancy; O99.284 Endocrine, nutritional and metabolic diseases complicating childbirth; E03.9 Hypothyroidism, unspecified; Z67.11 Type A blood, Rh negative; O26.893 Other specified pregnancy related conditions, third trimester; O34.03 Maternal care for unspecified congenital malformation of uterus, third trimester; Q51.810 Arcuate uterus; O36.63X0 Maternal care for excessive fetal growth, third trimester, not applicable or unspecified
CPT/HCPCS: 36415; 51702; 59025; 59409; 81001; 83986; 84112; 85025; 85027; 85460; 86850; 86900; 90384; 99211; J2590; J2795; J7040; J7120; J7121

== ENCOUNTER → 2023-02-15 15:00 | Outpatient (BNVA) | payer OTHER, SELFPAY | PROVIDERS: PCP Nurse Practitioner Family; Visit Provider Obstetrics & Gynecology | DX: R30.0 Dysuria (principal); R39.9 Unspecified symptoms and signs involving the genitourinary system | CPT/HCPCS: 81000; 87086 ==

== ENCOUNTER 2024-02-10 15:51 | Outpatient (CLI) | payer OTHER, SELFPAY | END 2024-02-10 15:52 | disposition home or self-care (01) | LOC: LAB 15:56 | PROVIDERS: PCP Nurse Practitioner Family; Visit Provider Nurse Practitioner Women's Health | DX: N92.6 Irregular menstruation, unspecified (principal) | CPT/HCPCS: 84702 ==

== ENCOUNTER → 2024-02-15 15:31 | Outpatient (BNVA) | payer OTHER, SELFPAY | PROVIDERS: PCP Nurse Practitioner Family; Visit Provider Nurse Practitioner Women's Health | DX: O03.9 Complete or unspecified spontaneous abortion without complication (principal) | CPT/HCPCS: 84702; 85025 ==

== ENCOUNTER 2024-02-16 10:16 | Outpatient (CLI) | payer OTHER, SELFPAY ==
--- NOTE | 2024-02-16 10:30 | US_ITS ---
WS: [id number] EARLY OBSTETRICAL ULTRASOUND (<14 WEEKS). HISTORY: O20.0 - Threatened COMPARISON: None available. Transvaginal imaging is performed. There is an intrauterine gestational sac with a mean sac diameter of 2.0 cm. This corresponds to a gestation of 6 weeks and 6 days. Within the gestational sac there is increased soft tissue which is probably a crown-rump length. This does not have the appearance of a normal crown-rump length. The yolk sac is flattened and small. No cardiac activity identified within the embryo. The gestational sac is abnormal in appearance with thickened asymmetric wall near the emb diana. There is also a small subchorionic hemorrhage. Ovaries are both identified and normal size. Normal vascularity. US/ OB transvaginal [id number] IMPRESSION: 1. Single intrauterine gestation and gestational sac identified. There is no c ardiac activity. Findings consistent with embryonic demise. 2. Sac measurement of 6 weeks 6 days. [place]-rump length measurement 7 weeks 3 days. Notified NEHEMIAH Lion at [facility] at 02/16/2024 11:18 AM.
== END 2024-02-16 10:17 | disposition home or self-care (01) ==
LOC: RAD 10:16
PROVIDERS: PCP Nurse Practitioner Family; Visit Provider Nurse Practitioner Women's Health
DX: O20.0 Threatened abortion (principal)
CPT/HCPCS: 76817

== ENCOUNTER → 2024-02-23 14:07 | Outpatient (BNVA) | payer OTHER, SELFPAY | PROVIDERS: PCP Nurse Practitioner Family; Visit Provider Nurse Practitioner Women's Health | DX: O36.80X0 Pregnancy with inconclusive fetal viability, not applicable or unspecified (principal); Z3A.01 Less than 8 weeks gestation of pregnancy | CPT/HCPCS: 76817 ==

== ENCOUNTER → 2024-03-07 12:28 | Outpatient (BNVA) | payer OTHER, SELFPAY | PROVIDERS: PCP Nurse Practitioner Family; Visit Provider Nurse Practitioner Women's Health | DX: O36.5910 Maternal care for other known or suspected poor fetal growth, first trimester, not applicable or unspecified (principal); Z3A.09 9 weeks gestation of pregnancy; O20.8 Other hemorrhage in early pregnancy | CPT/HCPCS: 76817 ==

== ENCOUNTER → 2024-03-22 08:16 | Outpatient (BNVA) | payer OTHER, SELFPAY | PROVIDERS: PCP Nurse Practitioner Family; Visit Provider Nurse Practitioner Women's Health | DX: Z34.90 Encounter for supervision of normal pregnancy, unspecified, unspecified trimester (principal) | CPT/HCPCS: 80307; 80503; 84315; 85025; 86592; 86762; 86803; 86850; 86870; 86900; 87086; 87340; 87806 ==

== ENCOUNTER → 2024-03-24 08:33 | Outpatient (BNVA) | payer OTHER, SELFPAY | PROVIDERS: PCP Nurse Practitioner Family; Visit Provider Nurse Practitioner Women's Health | DX: O36.80X0 Pregnancy with inconclusive fetal viability, not applicable or unspecified (principal); Z3A.11 11 weeks gestation of pregnancy | CPT/HCPCS: 76801 ==

== ENCOUNTER → 2024-04-10 14:45 | Outpatient (BNVA) | payer OTHER, SELFPAY | PROVIDERS: PCP Nurse Practitioner Family; Visit Provider Obstetrics & Gynecology | DX: O09.899 Supervision of other high risk pregnancies, unspecified trimester (principal) | CPT/HCPCS: 84315; 87491; 87591; 87624; 87661 ==

== ENCOUNTER → 2024-06-05 15:13 | Outpatient (BNVA) | payer OTHER, SELFPAY | PROVIDERS: PCP Nurse Practitioner Family; Referring Provider Obstetrics & Gynecology; Visit Provider Internal Medicine Cardiovascular Disease | DX: R07.9 Chest pain, unspecified (principal); I49.8 Other specified cardiac arrhythmias | CPT/HCPCS: 93005 ==

== ENCOUNTER → 2024-06-21 08:08 | Outpatient (BNVA) | payer OTHER, BC, MEDICAID, SELFPAY | PROVIDERS: PCP Nurse Practitioner Family; Visit Provider Nurse Practitioner Women's Health | DX: O09.899 Supervision of other high risk pregnancies, unspecified trimester (principal); O26.892 Other specified pregnancy related conditions, second trimester; Z67.91 Unspecified blood type, Rh negative | CPT/HCPCS: 82950; 84315 ==

== ENCOUNTER 2024-06-27 07:31 | Outpatient (CLI) | payer OTHER, BC, MEDICAID, SELFPAY ==
--- NOTE | 2024-06-27 07:45 | USCV_ITS ---
Douglas Susie Age: 33 Gender: F : 1990 Exam Date: 06/27/2024 07:51 Ordering Phys: Linda Melton MD ([email or web address]) Technologist: Exam Location: [facility] Indication: palpitations BP: 100 / 60 HR: 93 Rhythm: Sinus Technical Quality: MEASUREMENTS (Male / Female) Normal Values 2D ECHO LV Diastolic Diameter PLAX 4.5 cm 4.2 - 5.9 / 3.9 - 5.3 cm IVS Diastolic Thickness 1.0 cm 0.6 - 1.0 / 0.6 - 0.9 cm IVS Systolic Thickness 1.4 cm LVPW Diastolic Thickness 0.8 cm 0.6 - 1.0 / 0.6 - 0.9 cm LVPW Systolic Thickness 1.2 cm LV Ejection Fraction 2D Teich 68.1 % LV Ejection Fraction MOD 4C 67.4 % LV Ejection Fraction MOD 2C 65.5 % LV Ejection Fraction 2C AL 66.9 % RA Systolic Volume 4C AL 53.1 ml RA Systolic Volume 4C MOD 51.2 ml LA Sys Volume AL 67.6 cm cubed LA Sys Volume Index AL 34.6 cm cubed/m squared IVC Diameter 1.6 cm M-MODE LA Ao Ratio MM 1.5 AV Cusp Separation MM 2.2 cm DOPPLER AV Peak Velocity 130.0 cm/s LVOT Peak Velocity 105.0 cm/s MV Area PHT 5.2 cm squared Mitral E to A Ratio 1.6 TV Peak Velocity 154.0 cm/s TR Peak Velocity 168.0 cm/s TR Peak Gradient 11.3 mmHg TV Peak E Velocity 82.0 cm/s PV Peak Velocity 101.0 cm/s FINDINGS Left Ventricle Normal left ventricular size and systolic function, EF 66 . No regional wall motion abnormalities. Right Ventricle The right ventricle is normal in size and function. Right Atrium The right atrium is normal in size. Left Atrium Mildly increased left atrial size. Mitral Valve Trace mitral valve regurgitation. Aortic Valve no gross abnormalities noted Tricuspid Valve No gross abnormalities noted Pulmonic Valve Structurally normal pulmonic valve. Pericardium Normal pericardium without effusion. Aorta Normal ascending aorta dimension. IVC The inferior vena cava appears normal. CONCLUSIONS Normal left ventricular size and systolic function, EF 66 . No regional wall motion abnormalities. Trace mitral valve regurgitation. Normal cardiac chamber sizes. No significant valvular abnormalities No intracardiac shunts by color-flow Doppler examination No similar previous studies are available for comparison Dr Linda Melton MD [facility] (Electronically Signed) Final Date: 29 June 2024 20:42 S
== END 2024-06-27 07:32 | disposition home or self-care (01) ==
LOC: RAD 07:32
PROVIDERS: PCP Nurse Practitioner Family; Visit Provider Internal Medicine Cardiovascular Disease
DX: I47.10 Supraventricular tachycardia, unspecified (principal)
CPT/HCPCS: 93306

== ENCOUNTER → 2024-07-21 14:46 | Outpatient (BNVA) | payer OTHER, BC, MEDICAID, SELFPAY | PROVIDERS: PCP Nurse Practitioner Family; Visit Provider Obstetrics & Gynecology | DX: O09.899 Supervision of other high risk pregnancies, unspecified trimester (principal) | CPT/HCPCS: 84315; 85025 ==

== ENCOUNTER → 2024-07-31 15:11 | Outpatient (BNVA) | payer OTHER, BC, MEDICAID, SELFPAY | PROVIDERS: PCP Nurse Practitioner Family; Visit Provider Obstetrics & Gynecology | DX: O09.899 Supervision of other high risk pregnancies, unspecified trimester (principal); Z3A.00 Weeks of gestation of pregnancy not specified | CPT/HCPCS: 84315 ==

== ENCOUNTER → 2024-08-14 15:12 | Outpatient (BNVA) | payer OTHER, SELFPAY | PROVIDERS: PCP Nurse Practitioner Family; Visit Provider Obstetrics & Gynecology | DX: O09.899 Supervision of other high risk pregnancies, unspecified trimester (principal) | CPT/HCPCS: 84315 ==

== ENCOUNTER → 2024-08-29 13:59 | Outpatient (BNVA) | payer OTHER, SELFPAY | PROVIDERS: PCP Nurse Practitioner Family; Visit Provider Nurse Practitioner Women's Health | DX: O09.899 Supervision of other high risk pregnancies, unspecified trimester (principal) | CPT/HCPCS: 84315 ==

== ENCOUNTER → 2024-09-13 14:23 | Outpatient (BNVA) | payer OTHER, SELFPAY | PROVIDERS: PCP Nurse Practitioner Family; Visit Provider Nurse Practitioner Women's Health | DX: O09.293 Supervision of pregnancy with other poor reproductive or obstetric history, third trimester (principal); O09.899 Supervision of other high risk pregnancies, unspecified trimester | CPT/HCPCS: 84315; 87081 ==

== ENCOUNTER → 2024-09-18 14:30 | Outpatient (BNVA) | payer OTHER, SELFPAY | PROVIDERS: PCP Nurse Practitioner Family; Visit Provider Obstetrics & Gynecology | DX: Z36.9 Encounter for antenatal screening, unspecified (principal) | CPT/HCPCS: 76816; 84315 ==

== ENCOUNTER → 2024-09-26 16:09 | Outpatient (BNVA) | payer OTHER, BC, MEDICAID, SELFPAY | PROVIDERS: PCP Nurse Practitioner Family; Visit Provider Nurse Practitioner Women's Health | DX: Z34.80 Encounter for supervision of other normal pregnancy, unspecified trimester (principal) | CPT/HCPCS: 84315 ==

== ENCOUNTER → 2024-10-04 14:22 | Outpatient (BNVA) | payer OTHER, BC, MEDICAID, SELFPAY | PROVIDERS: PCP Nurse Practitioner Family; Visit Provider Nurse Practitioner Women's Health | DX: O09.899 Supervision of other high risk pregnancies, unspecified trimester (principal) | CPT/HCPCS: 84315 ==

== ENCOUNTER 2024-10-07 22:11 | Outpatient (CLI) | payer OTHER, BC, MEDICAID, SELFPAY ==
[2024-10-07 22:23] VITALS: BMI 32.8
[2024-10-07 22:48] VITALS: BP 109/68; PULSE 95
[2024-10-07 23:03] VITALS: BP 109/70; PULSE 99
[2024-10-07 23:18] VITALS: BP 113/71; PULSE 102
[2024-10-07 23:33] VITALS: BP 111/72; PULSE 108
[2024-10-07 23:48] VITALS: BP 107/65; PULSE 91
[2024-10-08 00:03] VITALS: BP 112/63; PULSE 93
[2024-10-08 00:12] VITALS: BP 112/63; PULSE 93; RESP 16; O2SAT 100
== END 2024-10-08 00:12 | disposition home or self-care (01) ==
LOC: OPOB 22:21 → OBGYN 22:22
PROVIDERS: PCP Nurse Practitioner Family; Visit Provider Obstetrics & Gynecology
DX: O26.899 Other specified pregnancy related conditions, unspecified trimester (principal); Z3A.00 Weeks of gestation of pregnancy not specified; R10.9 Unspecified abdominal pain
CPT/HCPCS: 59025; 99211

== ENCOUNTER 2024-10-08 22:33 | Inpatient (IN) | payer OTHER, BC, MEDICAID, SELFPAY ==
[2024-10-08 20:59] VITALS: BP 130/77; PULSE 82
[2024-10-08 21:10] LABS: Actim Prom Positive
[2024-10-08 21:12] VITALS: BMI 33.3
[2024-10-08 21:14] VITALS: BP 119/69; PULSE 104
[2024-10-08 21:29] VITALS: BP 119/67; PULSE 96
[2024-10-08 21:38] VITALS: RESP 16
[2024-10-08 21:45] LABS: Basophils # 0.1 10^3/uL (0.0-0.1); Basophils % 0.7 %; Eosinophils # 0.2 10^3/uL (0.0-0.8); Eosinophils % 1.3 %; Lymphocytes # 1.7 10^3/uL (0.8-4.8); Lymphocytes % 12.3 %; Mean Corpuscular HGB Conc 32.8 g/dL (30-55); Mean Corpuscular Hemoglobin 30.5 pg (27-33); Mean Platelet Volume 11.4 fL (7.4-10.4); Monocytes # 1.5 10^3/uL (0.2-0.9); Monocytes % 10.3 %; Neutrophils # 9.94 10^3/uL (1.8-7.7); Neutrophils % 70.6 %; Nucleated Red Blood Cells % 0 %; Platelet Count 177 10^3/cmm (157-399); Red Cell Distribution Width 13.1 % (12.1-15.1); White Blood Count 14.08 10^3/uL (3.29-11.43)
[2024-10-08 22:33] VITALS: BP 113/73; PULSE 83; TEMP 35.9
--- NOTE | 2024-10-08 22:45 | PM.OBGYHP ---
Providers/Chief Complaint Admitting Physician: Cora Copeland DO Primary PHARMACOVIGILANCE SCIENTIST: Simon Menon MD Primary Care Provider: RENALDO Payton Chief Complaint: Possible ROM HPI PHARMACOVIGILANCE SCIENTIST History of Present Illness Patient was admitted at approximately 2044 on October 08, 2024 34 y.o. EDC October 10, 2024 At 39 w 5 d No complications Presented with fluid leakage + mild uterine contractions No bleeding + active movements Present Details : 2 Para: 1 Labs Rubella: Immune RPR: Negative GBS: Negative Medications/Allergies Home Medications ?Medication ?Instructions ?Recorded ?Confirmed ?Last Taken ?Type levothyroxine 50 mcg capsule 88 mcg PO DAILY 07/28/22 10/08/24 10/08/24 History docosahexaenoic acid 200 mg 200 mg PO 1XD 02/16/24 10/08/24 10/08/24 History capsule ( DHA) aspirin 81 mg chewable tablet 81 mg PO DAILY 05/29/24 10/08/24 10/08/24 History famotidine 20 mg tablet (Pepcid) 20 mg PO BID #60 tabs 08/29/24 10/08/24 Unknown Rx Allergies Allergy/AdvReac Type Severity Reaction Status Date / Time No Known Allergies Allergy Verified 10/07/24 22:33 PFSH PHARMACOVIGILANCE SCIENTIST PFSH: Medical History Rh D negative blood type History of hyperthyroidism Diagnosed with Graves' disease and hyperthyroidism in 2017 and was on methimazole managed by air cargo agent Dr. Llamas in [facility]. -Reports being on medication until 2018 and levels were normal and she was not on any medication on 09/22/2019 when she was diagnosed with hypothyroidism and is now on levothyroxine No pertinent past medical history Denies diabetes, asthma, hypertension, seizures, DVT/PE PCP: RENALDO Payton Hypothyroidism Diagnosed in 2019 after hyperthyroidism with Graves'. This is being managed by endocrinology in [facility]. She also reports having a goiter without any nodules Surgical History Status post hysteroscopy 09/17/2020---hysteroscopy with MyoSure for removal of fibroid and IUD removal performed by Dr. Moreno at [facility]. -----> at time of hysteroscopy 2 cm fibroid noted arising from the anterior uterine wall at the junction of the lower uterine segment and cervix which was removed with MyoSure. ------> pathology showed benign endometrial polyp with findings suggestive of a fragmented leiomyoma. No atypia or hyperplasia identified. S/P wisdom tooth extraction age 20 S/P tonsillectomy and adenoidectomy age 10 Family History Mother Hypertension Heart disease Thyroid disease Grandfather Colon cancer Paternal-- dx age 70 Grandmother Heart disease paternal Father Hypercholesteremia Brother Hypertension Family/Other Thyroid disease maternal aunt Social History Smoking and tobacco/nicotine status: never used tobacco/nicotine History History History 2 Term 1 0 Miscarriages/Ectopic 0 Living Children 1 Care KELSIE Calculator Estimated Delivery Date Method Current WG Current Estimate 10/10/24 LMP (Certain) 39w 6d Other Estimates 10/10/24 Ultrasound #1 39w 6d Specific Issues/Plans HYPOTHYROID RH NEGATIVE ; RhoGAM received 07/21/2024 MACROSOMIA- growth and liliane at 37 NIPT high risk Trisomy 13; MFM u/s normal SVT -- referred to Cardiology; ECHO pending Vitals/I&O/Wt Last Vital Signs Temp 96.6 F L 10/08/24 22:33 Pulse 96 10/09/24 01:53 Resp 16 10/08/24 21:38 BP 121/62 10/09/24 01:53 Pulse Ox 100 10/09/24 00:57 O2 Del Method Room Air 10/08/24 21:38 10/08/24 10/08/24 10/09/24 14:59 22:59 06:59 Intake Total 1010 / 1010 Balance 1010 / 1010 Weight last 48 hrs Weight 200 lb Physical Exam Narrative: Weight 200 lbs; 5?5? VS normal General comfortable, awake, alert Lungs: clear Cor: RRR Abd: nontender FH 38 cm , cephalic Cervix: 3 / 50 / -3 Ext: normal External monitor: heart tracing good variability, + accelerations Blood type A negative GBS 09-13-24 negative Data 10/08/24 21:17 Results Labs OB ([facility]): Obstetrics US 09/18/24 Blood Type A Negative 10/08/24 Antibody Screen Negative 10/08/24 Hct 40.0 % (36-47) 10/08/24 Hgb 13.10 g/dL (11.27-16.99) 10/08/24 Rho(D) Type Rh negative 10/08/24 Plt Count 177 10^3/cmm (157-399) 10/08/24 Hep Bs Antigen Non-reactive (Nonreactive) 03/22/24 Hepatitis C Antibody Non-reactive (Nonreactive) 03/22/24 Rubella IgG Antibody 88.4 IU/mL (0.0-10.0) H 03/22/24 RPR Nonreactive (Nonreactive) 03/22/24 HIV 1&2 Ab & HIV 1 Ag Non-reactive (Non-Reactiv) 03/22/24 C.trachomatis RNA (TMA) Not detected 04/10/24 N.gonorrhoeae RNA (TMA) Not detected 04/10/24 T. vaginalis Amp RNA Not detected 04/10/24 Chlamydia/GC Comment See comment 04/10/24 Glucose 1 Hr 50 gm 109 mg/dL (85-140) 06/21/24 Ser , Semi-Qnt 03880.00 mIU/mL 02/15/24 Urine Opiates Screen Negative ng/mL (Negative) 03/22/24 Ur Barbiturates Screen Negative ng/mL (Negative) 03/22/24 Ur Phencyclidine Scrn Negative ng/mL (Negative) 03/22/24 Ur Amphetamines Screen Negative ng/mL (Negative) 03/22/24 U Benzodiazepines Scrn Negative ng/mL (Negative) 03/22/24 Urine Cocaine Screen Negative ng/mL (Negative) 03/22/24 U Marijuana (THC) Screen Negative ng/mL (Negative) 03/22/24 Micro Urine Specimen 03/22/24 Pap Smear Interpret See note 04/10/24 A&P Assessment and plan (1) Supervision of other high-risk : 39 w 5 d Spontaneous rupture of membranes Active labor Fetus reassuring Labor management h/o x one PDMP PDMP Reviewed: Not Reviewed Attestations Medical Necessity Statement*: patient at 39 w 5 d, with active labor Coding Level of Care Code Acute Code for Chg Fwd Diagnoses Supervision of other high-risk O09.899
[2024-10-08 22:48] VITALS: BP 109/66; PULSE 85
[2024-10-08] MEDS: sodium chloride 0.9% 1,000 ML 999 ML IV (23:57)
[2024-10-09] VITALS (30 sets, daily range): BP systolic 107–178; BP diastolic 57–125; PULSE 72–122; RESP 16–18; TEMP 36.7–36.9; O2SAT 96–100
--- NOTE | 2024-10-09 00:30 | P.ANESASSM_ITS ---
Pre-Anesthetic Assessment Height/Weight: Height 1.65 m Weight 90.718 kg Temp Pulse Resp BP Pulse Ox O2 Del Method 96.6 F L 98 16 118/70 99 Room Air 10/08/24 22:33 10/09/24 00:27 10/08/24 21:38 10/09/24 00:25 10/09/24 00:27 10/08/24 21:38 Preop Diagnosis: Labor pain LEONCIO Was Beta Rosamaria taken within 24 hours: N/A Was Clonidine taken within 24 hours: N/A Social No alcohol and No tobacco Exam alert, oriented x 3, clear to auscultation bilaterally and regular rate & rhythm Airway Submandibular: within normal limits Cervical ROM: within normal limits Mallampati: Class II Dentition: full History/ROS No significant history except as noted and No significant complaints Pulmonary None reported CV/HEM None reported SVT with last None reported Hepatic None reported GI None reported Metabolic Thyroid Disease Musc/skel None reported Neuropsych None reported Anesthetic Plan ASA status: 2 Anesthesia: Anesthesia Evaluation and Regional (specify below) (LEONCIO) Risk of > 500 ml blood loss (7ml/kg in children): No Medications/Allergies Home Medications ?Medication ?Instructions ?Recorded ?Confirmed ?Last Taken ?Type levothyroxine 50 mcg capsule 88 mcg PO DAILY 07/28/22 10/08/24 10/08/24 History docosahexaenoic acid 200 mg 200 mg PO 1XD 02/16/2412/2710/08/24 History capsule ( DHA) aspirin 81 mg chewable tablet 81 mg PO DAILY 05/29/24 10/08/24 10/08/24 History famotidine 20 mg tablet (Pepcid) 20 mg PO BID #60 tabs 08/29/24 10/08/24 Unknown Rx Allergies Allergy/AdvReac Type Severity Reaction Status Date / Time No Known Allergies Allergy Verified 10/07/24 22:33 COUNTS INCLUDE 234 BEDS AT THE [facility] Anesthesia Medical History Rh D negative blood type History of hyperthyroidism Diagnosed with Graves' disease and hyperthyroidism in 2017 and was on methimazole managed by fruit grader operator Dr. Llamas in [facility]. -Reports being on medication until 2018 and levels were normal and she was not on any medication on 09/22/2019 when she was diagnosed with hypothyroidism and is now on levothyroxine No pertinent past medical history Denies diabetes, asthma, hypertension, seizures, DVT/PE PCP: RENALDO Payton Hypothyroidism Diagnosed in 2019 after hyperthyroidism with Graves'. This is being managed by endocrinology in [facility]. She also reports having a goiter without any nodules Surgical History Status post hysteroscopy 09/17/2020---hysteroscopy with MyoSure for removal of fibroid and IUD removal performed by Dr. Moreno at [facility] [place]. -----> at time of hysteroscopy 2 cm fibroid noted arising from the anterior uterine wall at the junction of the lower uterine segment and cervix which was removed with MyoSure. ------> pathology showed benign endometrial polyp with findings suggestive of a fragmented leiomyoma. No atypia or hyperplasia identified. S/P wisdom tooth extraction age 20 S/P tonsillectomy and adenoidectomy age 10 Family History Mother Hypertension Heart disease Thyroid disease Grandfather Colon cancer Paternal-- dx age 70 Grandmother Heart disease paternal Father Hypercholesteremia Brother Hypertension Family/Other Thyroid disease maternal aunt Social History Smoking and tobacco/nicotine status: never used tobacco/nicotine Female Reproductive History : 2 Data Anesthesia 10/08/24 21:17 Short CBC 10/08/24 Range/Units 21:17 WBC 14.08 H (3.29-11.43) 10^3/uL Hgb 13.10 (11.27-16.99) g/dL Hct 40.0 (36-47) % MCV 93.0 (85-98) fl Plt Count 177 (157-399) 10^3/cmm Neut % (Auto) 70.6 % Neut # (Auto) 9.94 H (1.8-7.7) 10^3/uL Blood Bank 10/08/24 21:17 Blood Type A Negative Rho(D) Type Rh negative Antibody Screen Negative Cardiac Studies: 2 Echocardiogram 06/27/24
--- NOTE | 2024-10-09 00:32 | ANES.PROC ---
Anesthesia Procedures Procedure/Date: 10/09/24 Epidural: Time Out Performed: Yes Consents Signed: Procedure Consent Consent: requested by attending/covering physician, from patient, risks and benefits reviewed and patient agrees to proceed Lumbar Level: L2-L3 Epidural position: sitting Epidural procedure: sterile prep of area, 1% lidocaine to numb the area, 18 g needle, neg for paresthesia, test dose given, 1.5% xylocaine 1:200k epi (5cc), 0.2% Ropivacaine bolus ml (5cc and Fentanyl 100mcg), placed PCEA, no systemic response, sterile dressing applied, L.U.D. no apparent complications and 0.2% Ropiavacaine @ mls/hr (13cc/hour) Additional Comments: Pt tolerated well
[2024-10-09] MEDS: ROPivacaine syringe 100 MG/50 ML SYRINGE 13 MG EPIDURAL (00:36)
[2024-10-09] MEDS: dextrose 5%-lactated ringers 1,000 ML 125 ML IV (00:48)
--- NOTE | 2024-10-09 01:10 | PM.DELIVERY ---
Delivery Note: Date of delivery: October 09, 2024 Pre-delivery diagnoses: 39 w 5 d spontaneous rupture of membranes active labor Post-delivery diagnoses: 39 w 5 d spontaneous rupture of membranes active labor vaginal delivery Procedure: vaginal delivery Op report anesthesia: Epidural Delivering Physician: Simon Menon MD Estimated blood loss (mL): 300 Findings: , vigorous infant Cord gases and blood obtained Normal placenta and cord No episiotomy / lacerations EBL: 300 cc No complications Pre-Delivery Course: normal labor course fetus reassuring throughout Delivery: vaginal Post-Delivery Status: good History History History 2 Term 1 0 Miscarriages/Ectopic 0 Living Children 1 A&P Assessment and plan (1) Vaginal delivery: PDMP PDMP Reviewed: Not Reviewed Coding Level of Care Code Acute Code for Chg Fwd Diagnoses Vaginal delivery O80 Time Spent (min) 60
[2024-10-09] MEDS: oxytocin 30 UNIT/500 ML BAG 600 UNIT IV (01:22)
[2024-10-09] MEDS: docusate sodium 100 mg Capsule PO ×2 (08:17→20:42)
[2024-10-09] MEDS: PRENATAL VIT NO.130/IRON/FOLIC 1 EACH TABLET PO (08:17)
[2024-10-09] MEDS: ibuprofen 800 mg tablet PO ×2 (08:17→20:42)
[2024-10-09 13:55] LABS: Hematocrit 38.4 % (36-47); Mean Corpuscular HGB Conc 33.9 g/dL (30-55); Mean Corpuscular Hemoglobin 31.4 pg (27-33); Mean Corpuscular Volume 92.8 fl (85-98); Mean Platelet Volume 11.6 fL (7.4-10.4); Platelet Count 161 10^3/cmm (157-399); Red Blood Count 4.14 10^6/uL (3.85-5.65); Red Cell Distribution Width 13.2 % (12.1-15.1); White Blood Count 19.66 10^3/uL (3.29-11.43)
--- NOTE | 2024-10-09 15:48 | ANE.PACU2 ---
Inpatient post-anesthesia follow up: Airway intact: Yes Vital signs: Temperature 98 F Pulse Rate 75 Respiratory Rate 16 Blood Pressure 106/78 Pulse Oximetry 98 Oxygen Delivery Me thod Room Air Oxygen Flow Rate Fraction of Inspir ed Oxygen Hydration adequate: Yes Nausea and vomiting: No Pain level: 1 Mental status: Baseline Epidural Start/End: Epidural Start Date: 10/09/24 Epidural Start Time: 00:18 Epidural End Date: 10/09/24 Epidural End Time: 01:57
[2024-10-10 05:29] VITALS: BP 119/70; PULSE 79; RESP 16; TEMP 36.8; O2SAT 96
[2024-10-10] MEDS: PRENATAL VIT NO.130/IRON/FOLIC 1 EACH TABLET PO (09:44)
[2024-10-10] MEDS: ibuprofen 800 mg tablet PO (09:44)
[2024-10-10] MEDS: docusate sodium 100 mg Capsule PO (09:44)
[2024-10-10 09:46] VITALS: BP 118/83; PULSE 82; RESP 16; TEMP 36.6
[2024-10-10 11:43] VITALS: BP 106/78; PULSE 75; O2SAT 98
--- NOTE | 2024-10-10 11:50 | P.DS_ITS ---
Discharge Providers MEDICAL INTERPRETER Date of Admission: 10/08/24 22:33 Date of Discharge: 10/10/24 Attending Provider at Admission: Cora Copeland DO Attending Provider at Discharge: Simon Menon MD Consults: none Primary MEDICAL INTERPRETER: Simon Menon MD Primary Care Provider: RENALDO Payton Diagnoses at Discharge Discharge Diagnosis (1) Vaginal delivery: Details from hospital stay: 34 y.o. at 39 w 5 d no complications admitted with spontaneous rupture of membranes and active labor patient progressed to have normal vaginal delivery of a vigorous fetus was reassuring throughout there were no episiotomy or lacerations patient did well and was discharged to home on the first day Status: Inactive Reason for Visit Reason for Visit: Possible ROM Brief History: 34 y.o. at 39 w 5 d no complications admitted with spontaneous rupture of membranes and active labor Hospital Course Hospital Course 34 y.o. at 39 w 5 d no complications admitted with spontaneous rupture of membranes and active labor patient progressed to have normal vaginal delivery of a vigorous infant fetus was reassuring throughout there were no episiotomy or lacerations patient did well and was discharged to home on the first day Information Peripartum Data: Delivery Method: Vaginal Laceration description: None Episiotomy description: None complications: none Physical Exam Narrative: General comfortable, awake, alert VS afebrile, VS normal Lungs: clear Cor: RRR Abd: soft, nontender. Fundus firm Ext: normal History History History 2 Term 1 0 Miscarriages/Ectopic 0 Living Children 1 Discharge Data Studies Completed and Pending Laboratory Results WBC 19.66 10^3/uL (3.29-11.43) H 10/09/24 13:45 RBC 4.14 10^6/uL (3.85-5.65) 10/09/24 13:45 Hgb 13.00 g/dL (11.27-16.99) 10/09/24 13:45 Hct 38.4 % (36-47) 10/09/24 13:45 MCV 92.8 fl (85-98) 10/09/24 13:45 MCH 31.4 pg (27-33) 10/09/24 13:45 MCHC 33.9 g/dL (30-55) 10/09/24 13:45 RDW 13.2 % (12.1-15.1) 10/09/24 13:45 Plt Count 161 10^3/cmm (157-399) 10/09/24 13:45 MPV 11.6 fL (7.4-10.4) H 10/09/24 13:45 Neut % (Auto) 70.6 % 10/08/24 21:17 Lymph % (Auto) 12.3 % 10/08/24 21:17 [place] % (Auto) 10.3 % 10/08/24 21:17 Eos % (Auto) 1.3 % 10/08/24 21:17 Baso % (Auto) 0.7 % 10/08/24 21:17 Neut # (Auto) 9.94 10^3/uL (1.8-7.7) H 10/08/24 21:17 Lymph # (Auto) 1.7 10^3/uL (0.8-4.8) 10/08/24 21:17 [place] # (Auto) 1.5 10^3/uL (0.2-0.9) H 10/08/24 21:17 Eos # (Auto) 0.2 10^3/uL (0.0-0.8) 10/08/24 21:17 Baso # (Auto) 0.1 10^3/uL (0.0-0.1) 10/08/24 21:17 Nucleated RBC % (auto) 0 % 10/08/24 21:17 Nucleated RBCs # 0.0 /100WBC 10/08/24 21:17 Insulin-like GF I Positive 10/08/24 21:00 Blood Type A Negative 10/08/24 21:17 Rho(D) Type Rh negative 10/08/24 21:17 Antibody Screen Negative 10/08/24 21:17 Screen Negative (Negative) 10/09/24 13:45 Procedures Performed vaginal delivery Vitals Last Vital Signs Temp 98 F 10/10/24 09:46 Pulse 75 10/10/24 11:43 Resp 16 10/10/24 09:46 BP 106/78 10/10/24 11:43 Pulse Ox 98 10/10/24 11:43 O2 Del Method Room Air 10/09/24 10:55 Results Labs OB ([facility]): Obstetrics US 09/18/24 Blood Type A Negative 10/08/24 Antibody Screen Negative 10/08/24 Hct 38.4 % (36-47) 10/09/24 Hgb 13.00 g/dL (11.27-16.99) 10/09/24 Rho(D) Type Rh negative 10/08/24 Plt Count 161 10^3/cmm (157-399) 10/09/24 Hep Bs Antigen Non-reactive (Nonreactive) 03/22/24 Hepatitis C Antibody Non-reactive (Nonreactive) 03/22/24 Rubella IgG Antibody 88.4 IU/mL (0.0-10.0) H 03/22/24 RPR Nonreactive (Nonreactive) 03/22/24 HIV 1&2 Ab & HIV 1 Ag Non-reactive (Non-Reactiv) 03/22/24 C.trachomatis RNA (TMA) Not detected 04/10/24 N.gonorrhoeae RNA (TMA) Not detected 04/10/24 T. vaginalis Amp RNA Not detected 04/10/24 Chlamydia/GC Comment See comment 04/10/24 Glucose 1 Hr 50 gm 109 mg/dL (85-140) 06/21/24 Ser , Semi-Qnt 66752.00 mIU/mL 02/15/24 Urine Opiates Screen Negative ng/mL (Negative) 03/22/24 Ur Barbiturates Screen Negative ng/mL (Negative) 03/22/24 Ur Phencyclidine Scrn Negative ng/mL (Negative) 03/22/24 Ur Amphetamines Screen Negative ng/mL (Negative) 03/22/24 U Benzodiazepines Scrn Negative ng/mL (Negative) 03/22/24 Urine Cocaine Screen Negative ng/mL (Negative) 03/22/24 U Marijuana (THC) Screen Negative ng/mL (Negative) 03/22/24 Micro Urine Specimen 03/22/24 Pap Smear Interpret See note 04/10/24 Discharge Plan Discharge Patient Disposition: Home Condition: Stable Prescriptions: Continued levothyroxine 50 mcg capsule 88 mcg PO DAILY DHA 200 mg capsule 200 mg PO 1XD famotidine [Pepcid] 20 mg tablet 20 mg PO BID Qty: 60 4RF Discontinued aspirin 81 mg tablet,chewable 81 mg PO DAILY Discharge Orders: Discharge Order (Routine); Ordered 10/10/24 Ordered By: Simon Menon Discharge Diet: Usual diet Discharge Activity: Increase activity as tolerated Patient Instructions: Depression (DC), Bleeding (DC), Preeclampsia and Eclampsia After Delivery (GEN), Hemorrhage (DC), OB Discharge Report, OB Anesthesia Instructions, OB Food/Drug Interaction Guide, Opioid Safety, OB Home Care, OB Proud Parent Packet, OB Vaginal Deliveries - [facility] Discharge Attestations MEDICAL INTERPRETER Time Spent in Discharge Care*: less than 30 min Coding Level of Care Code Acute Code for Chg Fwd Diagnoses Vaginal delivery O80
== END 2024-10-10 11:43 | disposition home or self-care (01) | DRG 807 ==
LOC: OPOB 22:33 → OBGYN 22:33
PROVIDERS: Obstetrics & Gynecology; Admitting Provider Obstetrics & Gynecology; PCP Nurse Practitioner Family; Visit Provider Obstetrics & Gynecology
DX: O99.284 Endocrine, nutritional and metabolic diseases complicating childbirth (principal); Z37.0 Single live birth; E03.9 Hypothyroidism, unspecified; Z3A.39 39 weeks gestation of pregnancy
CPT/HCPCS: 36415; 59025; 59409; 84112; 85025; 85027; 85460; 86850; 86900; 90384; 96374; 99211; J2590; J2795; J3010; J7030; J7121; J9999